=== PATIENT | female | born 1960 | race Caucasian/White ===

== ENCOUNTER 2022-02-28 14:46 | Emergency (ER) | payer OTHER, SELFPAY ==
--- NOTE | 2022-02-28 15:04 | ED.SKABFB ---
HPI - Skin/Abscess/Foreign Bdy General Chief complaint: Skin/Abscess/Foreign Body Stated complaint: Rash Time Seen by Provider: 02/28/22 15:05 Source: patient Mode of arrival: ambulatory Limitations: no limitations History of Present Illness HPI narrative: 61-year-old female presented for complaint of rash to the left neck, onset today. She states she has a history of rashes spreading quickly causing eye and lip swelling. She states she has been told she has an allergy to weeds or poison alejandro and has been out in her yard. States I usually get shot. She has not taken anything for symptoms. She does not have an EpiPen. She denies lip, tongue, or throat swelling, wheezing, shortness of breath, nausea or dizziness at this time. MD complaint: rash Related Data Home Medications Medication Instructions Recorded Confirmed carvedilol 3.125 mg tablet 1 tablet PO BID 02/28/22 02/28/22 furosemide 40 mg tablet 40 tablet PO BID 02/28/22 02/28/22 omeprazole 40 mg capsule,delayed 40 cap PO DAILY 02/28/22 02/28/22 release sertraline 100 mg tablet 100 tablet PO BID 02/28/22 02/28/22 simvastatin 20 mg tablet 20 tablet PO DAILY 02/28/22 02/28/22 valsartan 80 mg tablet 1 tablet PO DAILY 02/28/22 02/28/22 Allergies Allergy/AdvReac Type Severity Reaction Status Date / Time No Known Allergies Allergy Unverified 02/28/22 15:17 Review of Systems Review of Systems: CONSTITUTIONAL: Denies body aches, fever, chills, or sweats. EYES: Denies visual changes, redness, or swelling ENT: Denies rhinorrhea, congestion, sore throat, or otalgia. CARDIOVASCULAR: Denies chest pain, palpitations, or edema. RESPIRATORY: Denies cough or dyspnea. GASTROINTESTINAL: Denies abdominal pain, nausea, vomiting, or diarrhea. SKIN: reports rash, itching PMFSH Comments At time of signature, I have reviewed and agree with nursing past medical, surgical, social and family history unless otherwise noted. Please see nursing chart for further information. There is no relevant family history pertinent to the presenting complaint Exam Narrative: GENERAL: Well-appearing HEAD: Normocephalic, atraumatic. EYES: conjunctivae clear, and EOMI.No swelling ENT: Mucous membranes moist. Oropharynx without edema, erythema or lesions. NECK: Supple. No lymphadenopathy CHEST: Clear to auscultation. No respiratory distress. HEART: Regular rate and rhythm. SKIN: Warm, dry. Flat erythematous patches to left neck, no vesicles, drainage or open lesions Course Course Emergency Course: Patient is aware of diagnosis, understands and agrees to treatment plan. Anticipatory guidance given. Patient agrees to follow-up as directed and is aware of reasons to seek care at the emergency department. Portions of this record may have been created with voice recognition software Level of Care: Express Care Visit Vital Signs Vital signs: Vital Signs Temperature 98.9 F 02/28/22 15:07 Pulse Rate 82 02/28/22 15:07 Respiratory Rate 18 02/28/22 15:07 Blood Pressure 192/115 H 02/28/22 15:07 Pulse Oximetry 98 02/28/22 15:07 Oxygen Delivery Room Air 02/28/22 15:07 Temperature 98.9 F 02/28/22 15:07 Pulse Rate 82 02/28/22 15:07 Respiratory Rate 18 02/28/22 15:07 Blood Pressure 192/115 H 02/28/22 15:07 Pulse Oximetry 98 02/28/22 15:07 Oxygen Delivery Room Air 02/28/22 15:07 Reviewed MDM - Skin/Abscess/Foreign Bdy MDM Narrative Medical decision making narrative: Patient appears improved after the steroid, Benadryl and Pepcid. Prescription steroid as prescribed should symptoms return/worsen. Verbalizes understanding. Does not appear at this time to be erythema multiforme, bullous, SJS, TEN; Patient looks well, nontoxic afebrile; No soft palate or uvula edema, no tongue, lip edema or other mucosal involvement, no respiratory compromise, appropriate for initial outpatient treatment; discussed the importance of follow-up, patient agrees Instructed pat
[2022-02-28 15:07] VITALS: BP 192/115; PULSE 82; RESP 18; TEMP 37.2; O2SAT 98
[2022-02-28] MEDS: methylPREDNISolone SOD SUCC 125 MG VIAL IM (15:12)
[2022-02-28] MEDS: diphenhydrAMINE HCl CAP 25 MG CAPSULE PO (15:12)
[2022-02-28] MEDS: FAMOTIDINE 20 MG TABLET 40 MG PO (15:12)
[2022-02-28 15:20] VITALS: BP 160/100
== END 2022-02-28 16:05 | disposition home or self-care (01) ==
PROVIDERS: Emergency Provider Nurse Practitioner Family; PCP Physician Assistant
DX: L30.9 Dermatitis, unspecified (principal); I11.0 Hypertensive heart disease with heart failure; I50.9 Heart failure, unspecified; E11.9 Type 2 diabetes mellitus without complications; I20.9 Angina pectoris, unspecified
CPT/HCPCS: 96372; 99213; A9270; G0463; J2930

== ENCOUNTER 2024-01-31 13:15 | Emergency (ER) | payer MEDICAID, SELFPAY ==
--- NOTE | ~2024-01-31 | XR_ITS ---
XR chest 2V DATE: 01/31/2024 14:06 INDICATION: Cough for 6 days. Shortness of breath. History of pneumonia. TECHNIQUE: 2 views COMPARISON: 02/15/2017 2 view chest FINDINGS: Normal heart size. Mild bilateral perihilar and lower lung infiltrates or atelectasis are suggested since 02/15/2017. No pleural effusion or pulmonary vascular congestion or pneumothorax. Osteopenia. Diffuse idiopathic skeletal hyperostosis of the thoracic spine. IMPRESSION: Mild bilateral perihilar and lower lung infiltrates or atelectasis are suggested Reviewed, dictated and finalized at location A.
--- NOTE | 2024-01-31 13:25 | ED.GENADULT ---
HPI - General Adult General Chief complaint: Upper Respiratory Infection Stated complaint: cough/tight chest/congestion Time Seen by Provider: 01/31/24 13:25 Source: patient, RN notes reviewed and old records reviewed Mode of arrival: ambulatory Limitations: no limitations History of Present Illness HPI narrative: 63-year-old female to Express Care for complaint of loose cough, nasal congestion, nasal drainage, chest tightness, intermittent fever up to 101.3, myalgias for 5 days. Patient endorses history pneumonia DM, stroke, CHF. Patient denies allergies, nausea, vomiting, ear pain. patient able to tolerate fluids by mouth. Patient able to speak in short sentences. Respirations even and nonlabored Related Data Home Medications Medication Instructions Recorded Confirmed carvedilol 3.125 mg tablet 1 tablet PO BID 02/28/22 02/28/22 furosemide 40 mg tablet 40 tablet PO BID 02/28/22 02/28/22 omeprazole 40 mg capsule,delayed 40 cap PO DAILY 02/28/22 02/28/22 release sertraline 100 mg tablet 100 tablet PO BID 02/28/22 02/28/22 simvastatin 20 mg tablet 20 tablet PO DAILY 02/28/22 02/28/22 valsartan 80 mg tablet 1 tablet PO DAILY 02/28/22 02/28/22 amlodipine 5 mg tablet 5 mg PO DAILY 01/31/24 01/31/24 aspirin 01/31/24 atorvastatin 80 mg tablet mg 01/31/24 losartan 100 mg tablet mg 01/31/24 metformin 500 mg tablet mg 01/31/24 sitagliptin phosphate 100 mg mg 01/31/24 tablet (Januvia) Allergies Allergy/AdvReac Type Severity Reaction Status Date / Time No Known Allergies Allergy Unverified 01/31/24 13:48 Review of Systems Review of Systems: All systems reviewed & are unremarkable except as noted in HPI and below Constitutional: Constitutional: Reports as per HPI, Reports body ache(s), Reports fatigue and Reports fever(s) Eyes: Eyes: Reports no additional eye complaints ENT: Reports as per HPI, Reports nasal congestion and Reports nasal discharge Cardiovascular: Cardiovascular: Reports no additional cardiovascular complaints, Denies chest pain and Denies dyspnea Respiratory: Respiratory: Reports no additional respiratory complaints, Reports cough and Denies dyspnea Gastrointestinal: Gastrointestinal: Denies diarrhea, Denies nausea and Denies vomiting Musculoskeletal: Musculoskeletal: Reports as per HPI and Reports myalgias Neurologic: Reports system reviewed and no additional complaints, except as documented Psychiatric: Psychiatric: Reports no additional psychiatric complaints PMFSH Comments At the time of my signature, I reviewed and agree with the nursing past medical, surgical, social, and family history. There is no relevant family history pertinent to the patient complaint. Exam Const: General: cooperative, comfortable, no acute distress, alert, ill appearing acutely, tired appearing and well nourished Nutritional Appearance: well nourished Orientation/consciousness: patient oriented x3 Limitations: no limitations HENMT: Head: normal to inspection Ears: external ears normal Face/Nose/Sinus: Normal external nose present, Normal nares present, normal facial exam, No erythema and No edema Face and sinus: normal facial exam, no erythema and no edema Mouth: Yes Normal oral and palatal mucosa present Throat: posterior oropharynx abnormal erythema Eyes: General: appearance normal, both eyes and all related structures Neck: Neck: normal visual inspection, full ROM and no meningeal signs Lymphatic: no lymphadenopathy noted and no lymphedema noted Chest: Chest palpation & inspection: normal inspection of the chest Resp: Effort & Inspection: normal respiratory effort and able to speak in complete sentences Auscultation: clear to auscultation bilaterally and diminished lung sounds on the right in the lower lung lopez, on the left in the lower lung lopez and bilateral Cardio: Jugular venous distension: no JVD Rate: regular rate Rhythm: regular rhythm Back/Spine/Pelvis: Cervical Spine: cervical
[2024-01-31 13:27] VITALS: PULSE 98; RESP 20; TEMP 37.7; O2SAT 95
[2024-01-31 14:43] VITALS: BP 179/83
== END 2024-01-31 14:43 | disposition home or self-care (01) ==
PROVIDERS: Emergency Provider Nurse Practitioner Family; PCP Physician Assistant
DX: J18.9 Pneumonia, unspecified organism (principal); E11.9 Type 2 diabetes mellitus without complications; I11.0 Hypertensive heart disease with heart failure; I50.9 Heart failure, unspecified; I20.9 Angina pectoris, unspecified; E78.00 Pure hypercholesterolemia, unspecified; Z86.73 Personal history of transient ischemic attack (TIA), and cerebral infarction without residual deficits
CPT/HCPCS: 71046; 99213; G0463

== ENCOUNTER 2024-03-04 12:15 | Emergency (ER) | payer MEDICAID, SELFPAY ==
[2024-03-04 12:28] VITALS: BP 201/87; PULSE 69; RESP 16; TEMP 37.2; O2SAT 98
--- NOTE | 2024-03-10 12:28 | ED.SKABFB ---
HPI - Skin/Abscess/Foreign Bdy General Chief complaint: Skin/Abscess/Foreign Body Stated complaint: Gaulded skin under breasts Time Seen by Provider: 03/04/24 12:47 Source: patient, RN notes reviewed and old records reviewed Mode of arrival: ambulatory Limitations: no limitations History of Present Illness HPI narrative: 63-year-old female to [facility] Care for complaint rash below bilateral breasts for 2 days. Patient reports she has attempted to treat at home with various methods without relief. Patient denies fever, recent illness, utilizing new products, exposure to new environmental irritants. Patient history of hypertension and diabetes. Patient states that she has not taken her hypertension medication yet today. Patient reports that she tries to check her blood glucose weekly but is not very disciplined about it. Extensive patient teaching regarding the importance medication compliance and regularly checking glucose levels at home. Patient verbalized understanding. Related Data Home Medications Medication Instructions Recorded Confirmed carvedilol 3.125 mg tablet 1 tablet PO BID 02/28/22 02/28/22 furosemide 40 mg tablet 40 tablet PO BID 02/28/22 02/28/22 omeprazole 40 mg capsule,delayed 40 cap PO DAILY 02/28/22 02/28/22 release sertraline 100 mg tablet 100 tablet PO BID 02/28/22 02/28/22 simvastatin 20 mg tablet 20 tablet PO DAILY 02/28/22 02/28/22 valsartan 80 mg tablet 1 tablet PO DAILY 02/28/22 02/28/22 amlodipine 5 mg tablet 5 mg PO DAILY 01/31/24 01/31/24 aspirin 01/31/24 atorvastatin 80 mg tablet mg 01/31/24 losartan 100 mg tablet mg 01/31/24 metformin 500 mg tablet mg 01/31/24 sitagliptin phosphate 100 mg mg 01/31/24 tablet (Januvia) Allergies Allergy/AdvReac Type Severity Reaction Status Date / Time No Known Allergies Allergy Unverified 01/31/24 13:48 Review of Systems Review of Systems: All systems reviewed & are unremarkable except as noted in HPI and below Constitutional: Constitutional: Reports no additional constitutional complaints Eyes: Eyes: Reports no additional eye complaints ENT: Reports system reviewed and no additional complaints, except as documented Cardiovascular: Cardiovascular: Reports no additional cardiovascular complaints, Denies chest pain and Denies dyspnea Respiratory: Respiratory: Reports no additional respiratory complaints, Denies cough and Denies dyspnea Musculoskeletal: Musculoskeletal: Reports no additional musculoskeletal complaints Integumentary/Breasts: Skin/Breast: Reports pruritus and Reports rash ( Below bilateral breasts) Neurologic: Reports system reviewed and no additional complaints, except as documented Psychiatric: Psychiatric: Reports no additional psychiatric complaints PMFSH Comments At the time of my signature, I reviewed and agree with the nursing past medical, surgical, social, and family history. There is no relevant family history pertinent to the patient complaint. Exam Const: General: cooperative, no acute distress, alert, ill appearing chronically, uncomfortable and well nourished Nutritional Appearance: well nourished Orientation/consciousness: patient oriented x3 Limitations: no limitations HENMT: Head: normal to inspection Ears: external ears normal Face/Nose/Sinus: Normal external nose present, Normal nares present, normal facial exam, No erythema and No edema Face and sinus: normal facial exam, no erythema and no edema Mouth: Yes Normal oral and palatal mucosa present Eyes: General: appearance normal, both eyes and all related structures Neck: Neck: normal visual inspection, full ROM and no meningeal signs Lymphatic: no lymphadenopathy noted and no lymphedema noted Chest: Chest palpation & inspection: normal inspection of the chest Resp: Effort & Inspection: normal respiratory effort and able to speak in complete sentences Auscultation: clear to auscultation bilaterally Cardio: Jugular venous distension: no
== END 2024-03-04 13:22 | disposition home or self-care (01) ==
PROVIDERS: Emergency Provider Nurse Practitioner Family; PCP Physician Assistant
DX: B37.2 Candidiasis of skin and nail (principal); I25.110 Atherosclerotic heart disease of native coronary artery with unstable angina pectoris; I11.0 Hypertensive heart disease with heart failure; I50.9 Heart failure, unspecified; E11.9 Type 2 diabetes mellitus without complications
CPT/HCPCS: 99213; G0463